=== PATIENT | male | born 1965 | race Two or more races ===

== ENCOUNTER 2020-12-26 18:01 | Emergency (ER) | payer BC, OTHER ==
[~2020-12-26] VITALS: Ht 165.1 cm; Wt 79.5 kg
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
[2020-12-26] MEDS: HYDROcodone/APAP 5/325MG 1 TAB TABLET PO ONE (20:37)
[2020-12-26 20:38] VITALS: BP 148/78
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
[2020-12-26] MEDS ORDERED: HYDR-2761 PO (22:00)
[2020-12-26] MEDS ORDERED: CYCL5TAB PO (22:00)
[2020-12-26] MEDS ORDERED: IBUP-1007 PO (22:00)
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
== END 2020-12-26 22:40 | disposition home or self-care (01) ==
LOC: ER 18:01
DX: S80.01XA Contusion of right knee, initial encounter (principal); M79.642 Pain in left hand; M54.2 Cervicalgia; M54.5 Low back pain; R60.0 Localized edema; V98.8XXA Other specified transport accidents, initial encounter; Y93.89 Activity, other specified; Y92.89 Other specified places as the place of occurrence of the external cause; Y99.8 Other external cause status
CPT/HCPCS: 70450; 72110; 72125; 73130; 73564; 99285

== ENCOUNTER 2021-01-26 06:07 | Day surgery (SDC) | payer BC, OTHER ==
[~2021-01-26] VITALS: Ht 165.1 cm; Wt 80.5 kg
[~2021-01-26 06:07] MED LIST: CYCL5TAB PO; HYDR-2761 PO; HYDROmorphone 2 MG/ML VIAL IVP PRN; IBUP-1007 PO; IV RINGERS,LACTATED 1000ML 1,000 ML IV SCH; MORPHINE SULFATE 2 MG/ML VIAL. IVP PRN; PROCHLORPERAZINE 10 MG/2 ML VIAL. IVP PRN; fentaNYL PF VIAL 100 MCG/2 ML VIAL IVP PRN
[2021-01-26] MEDS ORDERED: SEVOFLURANE 61 TO 120 MINUTES. IH ONE (06:40)
[2021-01-26] MEDS ORDERED: DEXAMETHASONE SOD PHOS 4 MG/ML VIAL ONE (06:40)
[2021-01-26] MEDS ORDERED: LIDOCAINE 2% PF 5 ML VIAL. ONE (06:40)
[2021-01-26] MEDS ORDERED: PROPOFOL 10 MG/ML (20ML) VIAL. IV ONE (06:40)
[2021-01-26] MEDS ORDERED: ONDANSETRON PF 4 MG/2 ML VIAL. ONE (06:40)
[2021-01-26] MEDS ORDERED: fentaNYL PF VIAL 250 MCG/5 ML VIAL ONE (07:07)
[2021-01-26] MEDS ORDERED: MIDAZOLAM HCL/PF 2 MG/2 ML VIAL. ONE (07:07)
[2021-01-26] MEDS ORDERED: BUPIVACAINE-EPI 0.5%-1:200000 MPF 30 ML VIAL. ONE (07:11)
[2021-01-26] MEDS ORDERED: ePHEDrine PF IN SALINE 50 MG/10 ML SYRINGE. IV ONE (08:17)
[2021-01-26] MEDS ORDERED: KETOROLAC 30 MG/ML VIAL. ONE (08:30)
--- NOTE | 2021-01-26 08:54 | PDOC4 ---
Operative Note Operative Note Operative Note: Preoperative Diagnosis: Left inguinal hernia Postoperative Diagnosis: Same Procedure: Left inguinal hernia repair with mesh Surgeon: Nithin News Video Editor: Prakash DAVIS Anesthesia: General EBL: 10 mL Specimen: None Drains: None Complications: None Indication: The patient is a 55-year-old male who is referred with a left inguinal hernia. He was offered surgical treatment. The risks of surgery were discussed which include bleeding, infection, recurrence, pain, anesthetic risk, potential need for additional surgery procedure. He understands and would like to proceed. Description: The patient was taken to the operating room and placed supine on the operating table. General anesthesia was performed. The left groin was shaved prepped with ChloraPrep and draped in a standard surgical manner. An incision was made in the skin lines of the left groin with a scalpel. Cautery dissection was carried down to the external oblique aponeurosis. The aponeurosis was opened down to the external ring. The contents of the inguinal canal were digitally mobilized and encircled with a Boris drain. There was a moderate sized direct hernia defect present. The edges of the hernia defect were mobilized. All of the extruded contents were reduced. The defect was filled with an extra-large Phasix mesh plug. The plug was sutured into position with 2-0 Vicryl. The entire inguinal floor was then reinforced with a Prolene keyhole mesh patch. The patch was sutured around its periphery with 2-0 Vicryl. A slit was made to accommodate the cord structures. The external oblique was closed over the mesh with 2-0 Vicryl. Subcutaneous tissue was closed with 3-0 Vicryl. Skin was closed with 4-0 Monocryl and infiltrated with half percent Marcaine with epinephrine. Steri-Strips and a sterile dressing were applied. The patient tolerated the procedure well and was sent to [facility] in stable condition. At the end the case all counts were correct. GAURANG GREER MD January 26, 2021 08:53
--- NOTE | 2021-01-26 08:55 | DISCH ---
DISCHARGE INSTRUCTIONS Condition on Discharge Condition on Discharge: Stable Activity After Discharge Activity Instructions for Disc: Other, see below (no lifting over 20 lbs or strenuous activity X 4 weeks) Driving Instructions after Dis: Other, see below (no driving if taking pain mets) Diet after Discharge Diet after Discharge: Regular Wound Incision Care Wound/Incision Care: Other, see below (keep dressing clean and dry X 72 hours, may then remove and shower) Follow-Up Follow up with: Dr Greer in office in 2 weeks, call for appt [phone] GAURANG GREER MD January 26, 2021 08:55
[2021-01-26] MEDS ORDERED: OXYC1TAB15 PO (09:07)
[2021-01-26] MEDS ORDERED: fentaNYL PF VIAL 100 MCG/2 ML VIAL ONE (09:08)
[2021-01-26] MEDS: fentaNYL PF VIAL 100 MCG/2 ML VIAL IVP PRN ×2 (09:10→09:30)
[2021-01-26 09:19] VITALS: BP 127/64
[2021-01-26] MEDS ORDERED: oxyCODONE/APAP 5/325 1 TAB TABLET PO ONE (09:30)
== END 2021-01-26 10:07 | disposition home or self-care (01) ==
LOC: SURG 06:07
PROVIDERS: ATTEND Surgery
DX: K40.90 Unilateral inguinal hernia, without obstruction or gangrene, not specified as recurrent (principal); Z87.891 Personal history of nicotine dependence; Z79.899 Other long term (current) drug therapy; Z98.890 Other specified postprocedural states; Z20.822 Contact with and (suspected) exposure to COVID-19
CPT/HCPCS: 49505; 87426; A4364; A4930; A6402; C1781; J0690; J1100; J1885; J2250; J2405; J2704; J3010; A4452